=== PATIENT | female | born 1935 | race Caucasian/White ===

== ENCOUNTER 2020-01-14 12:51 | Emergency (ER) | payer MEDICARE, OTHER ==
[~2020-01-14] VITALS: Ht 160 cm; Wt 46.7 kg
[~2020-01-14 12:51] MED LIST: ALPRAZOLAM 0.50.5 M1 PO; ASPIRIN EC81 M1 PO; B-COMPLEX FOL400 MCG PO; BENADRYL25 MG PO; CALCITRATE200 MG PO; CRESTOR5 MG PO; LOPRESSOR PO; OMEGA-31000 MG PO; RED YEAST RICE600 MG PO; VITAMIN D-32000 UNIT PO
[2020-01-14 15:33] VITALS: BP 0/0
--- NOTE | 2020-01-14 16:02 | EKG ---
[place] [address] ELECTROCARDIOGRAM REPORT Name: ODILIA IBANEZ Room: [facility]#: [id number] Admission: 01/14/20 Attend Phys: Discharge: 01/14/20 Date of : 39 Date of Service: 01/14/20 1256 Report #: [id number] THIS REPORT FOR: //name// [facility] ED Test Date: 2020-01-14 Test Time: 12:56:10 Pat Name: ODILIA IBANEZ Department: Room: Gender: F [employer]: : 1935 Requested By: Jaron Barillas Order Number: [id number] MD: Sergio Mendez Measurements Intervals [place] Rate: 134 P: -51 CA: 39 QRS: 94 QRSD: 226 T: 258 QT: 378 QTc: 565 Interpretive Statements Wide QRS tachycardia IVCD left type Prolonged QT interval Compared to ECG 11/10/2009 11:38:19 Wide QRS tachycardia is noted Possible ischemia now present Prolonged QT interval now present Sinus rhythm no longer present Electronically Signed On 01-14-2020 16:02:16 CDT by Sergio Mendez [email or web address] <ELECTRONICALLY SIGNED> By: Sergio Mendez MD, FAC 01/14/20 1602 1256 1256 Sergio Mendez MD, [facility] /EPI
== END 2020-01-14 15:35 ==
LOC: M.ERS 12:51
DX: I46.9 Cardiac arrest, cause unspecified (principal); I48.91 Unspecified atrial fibrillation; Z88.5 Allergy status to narcotic agent; Z88.8 Allergy status to other drugs, medicaments and biological substances; Z95.1 Presence of aortocoronary bypass graft; Z85.3 Personal history of malignant neoplasm of breast; Z85.038 Personal history of other malignant neoplasm of large intestine; Z85.51 Personal history of malignant neoplasm of bladder